=== PATIENT | female | born 1995 | race African-American/Black ===

== ENCOUNTER 2016-10-07 17:40 | Emergency (ER) | payer OTHER, MEDICAID ==
[~2016-10-07] VITALS: Ht 167.6 cm; Wt 85.0 kg
[~2016-10-07 17:40] MED LIST: CARB100C4
[2016-10-07 20:25] VITALS: BP 121/79
== END 2016-10-07 20:45 | disposition home or self-care (01) ==
LOC: ER 20:29
DX: H60.8X2 Other otitis externa, left ear (principal)
CPT/HCPCS: 99283

== ENCOUNTER 2022-09-26 14:35 | Emergency (ER) | payer MEDICAID, OTHER ==
[~2022-09-26] VITALS: Ht 165.1 cm; Wt 91.0 kg
[~2022-09-26 14:35] MED LIST changes: -CARB100C4; +CARB100C9
[2022-09-26] MEDS ORDERED: NEOM1PAC6 TP (15:50)
[2022-09-26] MEDS ORDERED: NAPR500T7 MT (15:51)
[2022-09-26 16:12] VITALS: BP 114/88
== END 2022-09-26 16:19 | disposition home or self-care (01) ==
LOC: ER 14:35
DX: S60.511A Abrasion of right hand, initial encounter (principal); F41.9 Anxiety disorder, unspecified; Z91.040 Latex allergy status; Z91.018 Allergy to other foods; W22.8XXA Striking against or struck by other objects, initial encounter; Y93.89 Activity, other specified; Y92.89 Other specified places as the place of occurrence of the external cause; Y99.8 Other external cause status
CPT/HCPCS: 73130; 99283